=== PATIENT | male | born 1970 | race Caucasian/White ===

== ENCOUNTER 2017-09-07 09:17 | Emergency (ER) | payer OTHER ==
[~2017-09-07] VITALS: Ht 177.8 cm; Wt 114.3 kg
[~2017-09-07 09:17] MED LIST: GLIPIZIDE5 MG PO; GLUCOTROL5 MG; LOPRESSOR50 PO; METFORMIN HCL500 MG; METFORMIN HCL500 MG PO; NORVASC5 MG
[2017-09-07] MEDS ORDERED: ATROVEN NASAL (10:38)
[2017-09-07] MEDS ORDERED: AMOXICILLIN875 MG PO (10:38)
[2017-09-07 11:26] VITALS: BP 137/83
== END 2017-09-07 11:28 | disposition home or self-care (01) ==
LOC: M.ERS 09:17
DX: R91.8 Other nonspecific abnormal finding of lung field (principal); J32.9 Chronic sinusitis, unspecified; H57.8 Other specified disorders of eye and adnexa; I10 Essential (primary) hypertension; E11.9 Type 2 diabetes mellitus without complications